=== PATIENT | female | born 1980 | race Caucasian/White ===

== ENCOUNTER 2016-12-20 05:52 | Emergency (ER) | payer OTHER ==
[2016-12-20 06:34] LABS: BASOPHIL 0.2 % (0-2); EOSINOPHIL 2.7 % (0-5); HGB 13.6 g/dl (12.5-16.0); LYMPHOCYTE 32.5 % (15-48); MCHC 34.9 g/dL (32.0-36.0); MCV 88.8 fL (78.0-100.0); MPV 9.4 fL (6.0-9.5); NEUTROPHIL 55.6 % (41-80); PLT 236 K/uL (150-400); RBC 4.39 M/uL (4.20-5.40); RDW 12.4 % (11.5-14.0); WBC 6.6 K/uL (4.0-10.5)
[2016-12-20 06:52] LABS: ALBUMIN 4.1 g/dL (3.5-5.0); BILIRUBIN - TOTAL 0.3 mg/dL (0.1-1.0); CREATININE 0.8 mg/dL (0.5-1.0); GLOBULIN (CALCULATION) 2.3 g/dL (2.2-4.2); POTASSIUM 3.7 mmol/L (3.5-5.1); TOTAL PROTEIN 6.4 g/dL (6.4-8.3)
[2016-12-20 08:54] LABS: BILIRUBIN NEGATIVE (NEGATIVE); BLOOD NEGATIVE Ery/uL (NEGATIVE); CLARITY CLEAR (CLEAR); COLOR YELLOW (YELLOW); GLUCOSE (U) NORMAL (NORMAL); KETONE (U) NEGATIVE (NEGATIVE); LEUKOCYTES NEGATIVE Leu/uL (NEGATIVE); NITRITE NEGATIVE (NEGATIVE); PROTEIN NEGATIVE (NEGATIVE); UROBILINOGEN 0.2 mg/dL (0.2-1.0)
== END 2016-12-20 09:55 | disposition home or self-care (01) ==
LOC: FER 05:52
PROVIDERS: Emergency Medicine Emergency Medical Services
DX: R10.12 Left upper quadrant pain (principal); R11.0 Nausea; E86.9 Volume depletion, unspecified; Z88.5 Allergy status to narcotic agent; Z87.19 Personal history of other diseases of the digestive system; Z90.49 Acquired absence of other specified parts of digestive tract; Z98.890 Other specified postprocedural states
CPT/HCPCS: 36415; 80053; 81003; 82150; 83605; 83690; 85025; 87339; C9113; J1170; J1885; J2405; Q9967

== ENCOUNTER 2021-05-27 14:02 | Emergency (ER) | payer OTHER ==
[~2021-05-27 14:02] MED LIST: BENTYL10 MG PO; CIPRO500 MG PO; METRONIDAZOLE500 MG PO; ZOFRAN4 MG PO
[2021-05-27 15:17] LABS: BASOPHIL 0.4 % (0-2); EOSINOPHIL 0.1 % (0-5); HCT 42.7 % (37.0-47.0); HGB 14.6 g/dl (12.5-16.0); LYMPHOCYTE 39.8 % (15-48); MCHC 34.2 g/dL (32.0-36.0); MCV 90.7 fL (78.0-100.0); MONOCYTE 7.6 % (0-12); MPV 9.5 fL (6.0-9.5); NEUTROPHIL 51.8 % (41-80); NRBC 0; PLT 255 K/uL (150-400); RBC 4.71 M/uL (4.20-5.40); RDW 11.8 % (11.5-14.0); WBC 7.7 K/uL (4.0-10.5)
[2021-05-27 15:28] LABS: INR 1.01 (0.9-1.2); PROTHROMBIN TIME 12.7 SECONDS (11.8-13.4); PTT 23.8 SECONDS (24.4-34.7)
[2021-05-27 15:35] LABS: ALBUMIN 3.7 g/dL (3.4-5.0); BILIRUBIN - TOTAL 0.5 mg/dL (0.2-1.0); BUN/CREAT RATIO (CALC) 9.9 RATIO; CREATININE 0.81 mg/dL (0.51-0.95); GLOBULIN (CALCULATION) 3.3 g/dL; POTASSIUM 2.9 mmol/L (3.5-5.1)
[2021-05-27] MEDS ORDERED: UROCIT-K10 MEQ PO (17:39)
== END 2021-05-27 19:57 | disposition home or self-care (01) ==
LOC: FER 14:02
PROVIDERS: Emergency Medicine
DX: R07.89 Other chest pain (principal); E87.6 Hypokalemia; Z88.5 Allergy status to narcotic agent
CPT/HCPCS: 36415; 71045; 80053; 84484; 85025; 85610; 85730; 93005; J2270; J3475; J3480; J7050